=== PATIENT | female | born 1955 | race Caucasian/White ===

== ENCOUNTER 2017-11-16 01:27 | Emergency (ER) | payer MEDICAID, OTHER ==
[~2017-11-16] VITALS: Ht 162.6 cm; Wt 65.0 kg
[~2017-11-16 01:27] MED LIST: NAPR-996 PO
[2017-11-16 01:35] VITALS: BP 133/88
[2017-11-16] MEDS ORDERED: ketorolac trometh. 30mg/ml inj. IM ONE (01:50)
[2017-11-16] MEDS ORDERED: cephalexin 500mg capsule PO ONE (01:50)
[2017-11-16] MEDS ORDERED: IBUP-1985 PO (01:51)
[2017-11-16] MEDS ORDERED: CEPH500C5 PO (01:51)
== END 2017-11-16 02:08 | disposition home or self-care (01) ==
LOC: ER 01:27
DX: M79.671 Pain in right foot (principal); Z79.2 Long term (current) use of antibiotics; Z79.1 Long term (current) use of non-steroidal anti-inflammatories (NSAID)
CPT/HCPCS: 96372; 99283; J1885

== ENCOUNTER 2021-03-24 09:02 | Emergency (ER) | payer MEDICAID ==
[~2021-03-24] VITALS: Ht 172.7 cm; Wt 80.9 kg
[~2021-03-24 09:02] MED LIST changes: +CLIN150C8 PO
[2021-03-24] MEDS ORDERED: acetaminophen 325mg tablet PO ONE (09:20)
[2021-03-24] MEDS ORDERED: ketorolac trometh. 30mg/ml inj. IV ONE (09:20)
[2021-03-24] MEDS ORDERED: normal saline 1000ml 1,000 ML IV ONE (09:20)
[2021-03-24 09:51] LABS: BASOPHILS % (AUTO) 0.2 % (0-1); EOSINOPHILS # (AUTO) 0.1 X10'3 (0-0.9); HEMATOCRIT 38.3 % (35.0-45.0); HEMOGLOBIN 13.1 g/dl (12.0-16.0); LYMPHOCYTES # (AUTO) 0.6 X10'3 (1.1-4.8); LYMPHOCYTES % (AUTO) 4.2 % (21-51); MEAN CORPUSCULAR HEMOGLOBIN 29.3 PG (27.0-31.0); MEAN CORPUSCULAR HGB CONC 34.3 g/dL (33.0-36.5); MEAN CORPUSCULAR VOLUME 85.4 FL (78-98); MEAN PLATELET VOLUME 7.2 FL (7.4-10.4); MONOCYTES # (AUTO) 0.8 X10'3 (0-0.9); MONOCYTES % (AUTO) 6.3 % (2-12); NEUTROPHILS # (AUTO) 11.7 X10'3 (1.8-7.7); NEUTROPHILS % (AUTO) 88.3 % (42-75); PLATELET COUNT 206 X10'3 (140-440); RED BLOOD COUNT 4.48 X10'6 (4.20-5.60); RED CELL DISTRIBUTION WIDTH 13.7 % (11.5-14.5); WHITE BLOOD COUNT 13.3 X10'3 (4.5-11.0)
[2021-03-24] MEDS ORDERED: ketorolac trometh. 30mg/ml inj. IM ONE (10:05)
[2021-03-24 10:18] LABS: ALANINE AMINOTRANSFERASE 46 U/L (12-78); ALBUMIN 3.5 G/DL (3.4-5.0); ALBUMIN/GLOBULIN RATIO 1.2 (1.1-1.5); ALKALINE PHOSPHATASE 93 IU/L (46-116); ANION GAP 12 (8-16); ASPARTATE AMINO TRANSFERASE 49 U/L (10-37); BILIRUBIN,TOTAL 1.2 MG/DL (0.1-1.0); BLOOD UREA NITROGEN 15 MG/DL (7-18); BUN/CREATININE RATIO 15.8 (6.6-38.0); CALCIUM 8.5 MG/DL (8.5-10.1); CHLORIDE 98 MMOL/L (99-107); CREATININE 0.95 MG/DL (0.40-0.90); GLUCOSE 122 MG/DL (70-104); MAGNESIUM 1.2 MG/DL (1.5-2.4); POTASSIUM 3.4 MMOL/L (3.5-5.1); SODIUM 134 MMOL/L (135-145); TOTAL CARBON DIOXIDE 24.4 MMOL/L (24-32); TOTAL PROTEIN 6.4 G/DL (6.4-8.2); eGFR 59 ML/MIN
[2021-03-24 10:40] VITALS: BP 114/60
--- NOTE | 2021-03-24 12:03 | NUR ---
notified the patient daughter chaitanya that patient left the er without informing us ,pt walked out of er with her all belonging .informed that i asked her to try to urinate gabriele we can send the sample but pt said she will try in few mins ,came to check on pt no one was is room ,notified the provider josafat and charge nurse darin.
== END 2021-03-24 12:05 | disposition left against medical advice (07) ==
LOC: ER 09:02
DX: R50.9 Fever, unspecified (principal); Z20.822 Contact with and (suspected) exposure to COVID-19; Z79.2 Long term (current) use of antibiotics; Z79.899 Other long term (current) drug therapy
CPT/HCPCS: 36415; 71045; 80053; 83605; 83735; 84145; 85025; 87040; 87635; 93005; 96372; 99285; C9803; J1885; J7030

== ENCOUNTER 2024-01-16 08:22 | Outpatient (CLI) | payer MEDICARE, MEDICAID ==
[~2024-01-16 08:22] MED LIST changes: +CLIN-214 PO; -CLIN150C8 PO
== END 2024-01-16 23:59 | disposition home or self-care (01) ==
LOC: CARD DIAG 08:22
PROVIDERS: ATTEND Internal Medicine Critical Care Medicine
DX: I08.8 Other rheumatic multiple valve diseases (principal); M34.1 CR(E)ST syndrome; R06.02 Shortness of breath
CPT/HCPCS: 93306

== ENCOUNTER 2024-07-08 13:57 | Inpatient (IN) | payer MEDICARE, MEDICAID ==
[~2024-07-08] VITALS: Ht 162.6 cm; Wt 74.3 kg
[~2024-07-08 13:57] MED LIST changes: +NAPR-1168 PO; -NAPR-996 PO
[2024-07-08 15:00] LABS: BASOPHILS % (AUTO) 0.4 % (0-1); EOSINOPHILS # (AUTO) 0.1 X10'3 (0-0.9); EOSINOPHILS % (AUTO) 1.8 % (0-6); HEMATOCRIT 35.6 % (35.0-45.0); LYMPHOCYTES # (AUTO) 0.6 X10'3 (1.1-4.8); LYMPHOCYTES % (AUTO) 7.4 % (21-51); MEAN CORPUSCULAR HEMOGLOBIN 28.8 PG (27.0-31.0); MEAN CORPUSCULAR HGB CONC 33.7 g/dL (33.0-36.5); MEAN CORPUSCULAR VOLUME 85.3 FL (78-98); MEAN PLATELET VOLUME 7.6 FL (7.4-10.4); MONOCYTES # (AUTO) 0.8 X10'3 (0-0.9); MONOCYTES % (AUTO) 9.3 % (2-12); NEUTROPHILS # (AUTO) 6.7 X10'3 (1.8-7.7); NEUTROPHILS % (AUTO) 81.1 % (42-75); PLATELET COUNT 237 X10'3 (140-440); RED BLOOD COUNT 4.17 X10'6 (4.20-5.60); RED CELL DISTRIBUTION WIDTH 14.4 % (11.5-14.5); WHITE BLOOD COUNT 8.3 X10'3 (4.5-11.0)
[2024-07-08 15:11] LABS: ALBUMIN 3.1 G/DL (3.4-5.0); ANION GAP 11 (8-16); BLOOD UREA NITROGEN 11 MG/DL (7-18); BUN/CREATININE RATIO 10.6 (10.0-20.0); CHLORIDE 100 MMOL/L (99-107); CREATININE 1.04 MG/DL (0.40-0.90); GLUCOSE 122 MG/DL (70-104); POTASSIUM 3.6 MMOL/L (3.5-5.1); SODIUM 136 MMOL/L (135-145); TOTAL CARBON DIOXIDE 24.9 MMOL/L (24-32); eCRCL 46 ML/MIN; eGFR 53 ML/MIN
[2024-07-08 17:08] LABS: PRO BRAIN NATRIURETIC PEPTIDE 231 PG/ML (0-125)
[2024-07-08 17:33] LABS: ABG BASE EXCESS 0.2 mmol/L (-2.0-3.0); ABG OXYGEN SATURATION 94.1 % (94.0-98.0); ABG PCO2 (T) 31.8 mmHg (32.0-45.0); ABG PH (T) 7.478 (7.350-7.450); ALLEN'S TEST POSITIVE; FCOHb 0.9 % (0.5-1.5); FHHb 5.8 % (0.0-5.0); FMetHb 0.3 % (0.0-1.5); MODE RA; TOTAL HEMOGLOBIN 12.4 G/dl (12.0-16.0)
[2024-07-08] MEDS ORDERED: acetaminophen 325mg tablet PO PRN (17:35)
[2024-07-08] MEDS ORDERED: magnesium Cl slow-release 64mg tablet PO PRN (17:35)
[2024-07-08] MEDS ORDERED: potassium Cl 20 mEq SR tablet PO PRN (17:35)
[2024-07-08] MEDS ORDERED: ondansetron/PF 4mg/2ml inj IV PRN (17:35)
[2024-07-08] MEDS ORDERED: magnesium sulf-water 4G/100mL 100 ML IV PRN (17:35)
[2024-07-08] MEDS ORDERED: magnesium sulf-water 2g/50mL 50 ML IV PRN (17:35)
[2024-07-08] MEDS ORDERED: HYDROcodone/acetaminophen 5mg/325mg tablet PO PRN (17:35)
[2024-07-08] MEDS ORDERED: potassium Cl 40MEQ/1/2NS 520ml 520 ML IV PRN (17:35)
[2024-07-08] MEDS ORDERED: albuterol 2.5 MG/3 ML nebule NEB PRN (17:40)
[2024-07-08 18:13] LABS: HEMOGLOBIN A1C 5.3 % (4.5-6.2)
[2024-07-08 18:29] LABS: D-DIMER 1.33 MG/L FEU (0-0.50); PROTHROMBIN TIME 10.5 SECONDS (9.0-12.0)
[2024-07-08] MEDS: methylPREDNISolone sod succ/PF 40mg inj. IV SCH (18:30)
[2024-07-08] MEDS: furosemide 10 MG/1 ML 10ml inj IV ONE (18:32)
[2024-07-08 18:35] LABS: APTT 29 SECONDS (22-32)
[2024-07-08] MEDS: CefTRIAXone/D5W-Rocephin 1gm 50 ML IV SCH (18:36)
[2024-07-08] MEDS ORDERED: guaiFENesin ER 600mg tablet PO SCH (19:15)
[2024-07-08] MEDS: guaiFENesin ER 600mg tablet PO SCH (19:23)
[2024-07-08] MEDS: acetaminophen 325mg tablet PO ONE (19:45)
[2024-07-08 20:00] LABS: BILIRUBIN,URINE SMALL (Neg); CLARITY,URINE CLEAR (Clear); COLOR,URINE YELLOW (Yellow); GLUCOSE, URINE NEGATIVE (Neg); KETONES,URINE TRACE mg/dl (Neg); LEUKOCYTE ESTERASE ,URINE NEGATIVE (Neg); NITRITES, URINE NEGATIVE (Neg); OCCULT BLOOD,URINE NEGATIVE (Neg); PROTEIN,URINE 30 mg/dl (Neg)
[2024-07-08] MEDS: K and/or MAG REPLACEMENT MC SCH (20:00)
[2024-07-08 20:07] LABS: UA COLLECTION TYPE CLN CATCH MIDSTREAM
[2024-07-08 20:10] LABS: BACTERIA,URINE 1+ /HPF (Neg); MUCUS STRANDS FEW /LPF (Neg); RBC,URINE NONE SEEN /HPF (0-2); SQUAMOUS EPITHELIAL CELL,UR MODERATE /LPF (FEW); TRANSITIONAL EPI CELLS,URINE FEW /HPF; WBC,URINE 0-4 /HPF (0-4); YEAST FEW /HPF (NEGATIVE)
[2024-07-08] MEDS: ipratropium/albuterol 3ml nebule NEB SCH (20:39)
[2024-07-08 20:40] VITALS: PULSE 96; RESP 23; O2SAT 94
[2024-07-08 20:45] VITALS: PULSE 91; RESP 20
[2024-07-08] MEDS: potassium Cl 20 mEq SR tablet PO PRN (21:56)
[2024-07-08] MEDS: heparin, porcine 5000 units/ml vial SQ SCH (21:57)
[2024-07-08] MEDS ORDERED: PRED1TAB PO (22:20)
[2024-07-08] MEDS ORDERED: PRED5TAB PO (22:20)
[2024-07-08] MEDS ORDERED: ATOR20TA12 PO (22:21)
[2024-07-08 22:35] VITALS: RESP 15; O2SAT 95
[2024-07-08 22:56] VITALS: BP 111/62; PULSE 83; RESP 12; TEMP 96.3; O2SAT 96
[2024-07-08 23:36] VITALS: PULSE 89; RESP 22; O2SAT 96
[2024-07-08 23:43] VITALS: PULSE 85; RESP 22
[2024-07-09] VITALS (19 sets, daily range): BP systolic 106–112; BP diastolic 50–70; PULSE 71–97; RESP 15–22; TEMP 97.6–98.5; O2SAT 88–100
[2024-07-09 07:03] LABS: BASOPHILS % (AUTO) 0.2 % (0-1); EOSINOPHILS % (AUTO) 0 % (0-6); LYMPHOCYTES # (AUTO) 0.3 X10'3 (1.1-4.8); MEAN CORPUSCULAR HEMOGLOBIN 28.6 PG (27.0-31.0); MEAN CORPUSCULAR HGB CONC 33.3 g/dL (33.0-36.5); MEAN CORPUSCULAR VOLUME 85.8 FL (78-98); MEAN PLATELET VOLUME 7.5 FL (7.4-10.4); MONOCYTES # (AUTO) 0.2 X10'3 (0-0.9); NEUTROPHILS # (AUTO) 4.8 X10'3 (1.8-7.7); NEUTROPHILS % (AUTO) 90.8 % (42-75); PLATELET COUNT 230 X10'3 (140-440); RED CELL DISTRIBUTION WIDTH 14.5 % (11.5-14.5); WHITE BLOOD COUNT 5.3 X10'3 (4.5-11.0)
[2024-07-09 07:57] LABS: ALANINE AMINOTRANSFERASE 41 U/L (12-78); ALBUMIN 2.9 G/DL (3.4-5.0); ALBUMIN/GLOBULIN RATIO 0.7 (1.1-1.5); ALKALINE PHOSPHATASE 204 IU/L (46-116); ANION GAP 14 (8-16); ASPARTATE AMINO TRANSFERASE 24 U/L (10-37); BILIRUBIN,TOTAL 0.4 MG/DL (0.1-1.0); BLOOD UREA NITROGEN 17 MG/DL (7-18); BUN/CREATININE RATIO 15.6 (10.0-20.0); CALCIUM 8.8 MG/DL (8.5-10.1); CHLORIDE 100 MMOL/L (99-107); CHOLESTEROL 175 MG/DL (0-200); CREATININE 1.09 MG/DL (0.40-0.90); GLUCOSE 249 MG/DL (70-104); HDL CHOLESTEROL 44 MG/DL (35-60); LDL CHOLESTEROL 115 MG/DL (50-100); MAGNESIUM 2.1 MG/DL (1.5-2.4); PHOSPHORUS 4.6 MG/DL (2.3-4.5); POTASSIUM 3.8 MMOL/L (3.5-5.1); SODIUM 138 MMOL/L (135-145); TOTAL CARBON DIOXIDE 23.6 MMOL/L (24-32); TOTAL PROTEIN 7.3 G/DL (6.4-8.2); TRIGLYCERIDES 85 MG/DL (20-135); eCRCL 44 ML/MIN; eGFR 50 ML/MIN
[2024-07-09] MEDS: pantoprazole 40mg Tablet.DR PO SCH (08:03)
[2024-07-09] MEDS: lisinopril 10 MG tablet PO SCH (08:04)
[2024-07-09] MEDS ORDERED: LISI10TA27 PO (18:03)
[2024-07-09] MEDS ORDERED: TRAZ-251 PO (18:03)
[2024-07-09] MEDS ORDERED: HYDR200T73 PO (18:03)
[2024-07-09] MEDS ORDERED: HYDR-3964 PO (18:03)
[2024-07-09] MEDS: mag hydrox/Alum hydrox/simeth 30ml oral suspension PO PRN (20:10)
[2024-07-10] VITALS (12 sets, daily range): BP systolic 101–113; BP diastolic 42–67; PULSE 61–94; RESP 15–22; TEMP 97.8–98.5; O2SAT 95–100
[2024-07-10] MEDS: acetaminophen 325mg tablet PO PRN (01:54)
[2024-07-10 06:52] LABS: BASOPHILS % (AUTO) 0.1 % (0-1); EOSINOPHILS % (AUTO) 0 % (0-6); HEMATOCRIT 37.9 % (35.0-45.0); HEMOGLOBIN 12.6 g/dl (12.0-16.0); LYMPHOCYTES # (AUTO) 0.5 X10'3 (1.1-4.8); LYMPHOCYTES % (AUTO) 3.4 % (21-51); MEAN CORPUSCULAR HEMOGLOBIN 28.7 PG (27.0-31.0); MEAN CORPUSCULAR HGB CONC 33.3 g/dL (33.0-36.5); MEAN CORPUSCULAR VOLUME 86.2 FL (78-98); MEAN PLATELET VOLUME 7.7 FL (7.4-10.4); MONOCYTES # (AUTO) 0.7 X10'3 (0-0.9); NEUTROPHILS # (AUTO) 12.4 X10'3 (1.8-7.7); NEUTROPHILS % (AUTO) 91.5 % (42-75); PLATELET COUNT 297 X10'3 (140-440); RED CELL DISTRIBUTION WIDTH 14.1 % (11.5-14.5); WHITE BLOOD COUNT 13.5 X10'3 (4.5-11.0)
[2024-07-10 07:02] LABS: ALANINE AMINOTRANSFERASE 38 U/L (12-78); ALBUMIN 3.2 G/DL (3.4-5.0); ALBUMIN/GLOBULIN RATIO 0.7 (1.1-1.5); ALKALINE PHOSPHATASE 199 IU/L (46-116); ANION GAP 12 (8-16); ASPARTATE AMINO TRANSFERASE 15 U/L (10-37); BILIRUBIN,TOTAL 0.3 MG/DL (0.1-1.0); BLOOD UREA NITROGEN 26 MG/DL (7-18); BUN/CREATININE RATIO 22.8 (10.0-20.0); CALCIUM 8.9 MG/DL (8.5-10.1); CHLORIDE 99 MMOL/L (99-107); CREATININE 1.14 MG/DL (0.40-0.90); GLUCOSE 192 MG/DL (70-104); MAGNESIUM 2.3 MG/DL (1.5-2.4); PHOSPHORUS 4.5 MG/DL (2.3-4.5); POTASSIUM 3.8 MMOL/L (3.5-5.1); SODIUM 137 MMOL/L (135-145); TOTAL CARBON DIOXIDE 26.4 MMOL/L (24-32); TOTAL PROTEIN 7.9 G/DL (6.4-8.2); eCRCL 42 ML/MIN; eGFR 48 ML/MIN
[2024-07-10] MEDS ORDERED: PANT40TA54 PO (10:50)
[2024-07-10] MEDS ORDERED: GUAI600T45 PO (10:50)
[2024-07-10] MEDS ORDERED: IPRA3AMP9 NEB (10:50)
[2024-07-10] MEDS ORDERED: ALBU2.5V7 NEB (10:50)
[2024-07-10] MEDS ORDERED: FURO-150 PO (10:51)
[2024-07-10] MEDS ORDERED: LEVO750T68 PO (10:52)
[2024-07-10] MEDS ORDERED: PRED10TA23 PO (10:58)
== END 2024-07-10 12:30 | disposition home or self-care (01) | DRG 193 ==
LOC: ER 13:57 → ED HOLD 17:36 → PCU 3S 22:36
PROVIDERS: ADMIT Internal Medicine; ATTEND Internal Medicine
PROC: CB121ZZ Planar Nuclear Medicine Imaging of Lungs and Bronchi using Technetium 99m (Tc-99m) (ICD-10-PCS; principal; 2024-07-09)
DX: J15.9 Unspecified bacterial pneumonia (principal); I50.31 Acute diastolic (congestive) heart failure; J84.9 Interstitial pulmonary disease, unspecified; I13.0 Hypertensive heart and chronic kidney disease with heart failure and stage 1 through stage 4 chronic kidney disease, or unspecified chronic kidney disease; Z20.822 Contact with and (suspected) exposure to COVID-19; Z66 Do not resuscitate; I27.81 Cor pulmonale (chronic); M34.1 CR(E)ST syndrome; K21.9 Gastro-esophageal reflux disease without esophagitis; N18.9 Chronic kidney disease, unspecified; G47.33 Obstructive sleep apnea (adult) (pediatric); M81.0 Age-related osteoporosis without current pathological fracture; I27.20 Pulmonary hypertension, unspecified
CPT/HCPCS: 36415; 36600; 71045; 71250; 78582; 80048; 80053; 80061; 81001; 82803; 83036; 83605; 83735; 83880; 84100; 84145; 84484; 85018; 85025; 85379; 85610; 85730; 87040; 87081; 87502; 87503; 87811; 93005; 93306; 93970; 94640; 94760; 96365; 96372; 96375; 99291; A4615; A4620; A9539; A9540; G0378; J0696; J1644; J1940; J2919; J7040

== ENCOUNTER 2024-12-21 02:38 | Emergency (ER) | payer MEDICARE, MEDICAID ==
[~2024-12-21] VITALS: Ht 162.6 cm; Wt 70.4 kg
[~2024-12-21 02:38] MED LIST changes: +ALBU2.5V7 NEB; +ATOR20TA12 PO; -CLIN-214 PO; +FURO-150 PO; +GUAI600T45 PO; +HYDR-3964 PO; +HYDR200T73 PO; +IPRA3AMP9 NEB; +LISI10TA27 PO; -NAPR-1168 PO; +PANT40TA54 PO; +TRAZ-251 PO
[2024-12-21 02:40] VITALS: BP 128/82; PULSE 91; TEMP 97.6; O2SAT 98
[2024-12-21] MEDS ORDERED: normal saline 1000ML IV soln IVB ONE (02:50)
[2024-12-21] MEDS ORDERED: ondansetron/PF 4mg/2ml inj IV ONE (02:50)
[2024-12-21] MEDS ORDERED: morphine 4 MG/ML inj SYRINge IV ONE (02:50)
--- NOTE | 2024-12-21 02:52 | Physician Documentation ---
History of Present Illness Chief Complaint: Abdominal Pain w/vomiting Stated Complaint: VOMITING,SHORT OF BREATH Time Seen by MD: 02:46 Primary Medical Doctor: shawn schroeder on [facility], [place] HPI 69-year-old female with a prior history of colon resection, colostomy, status post reversal of colostomy, still has her gallbladder, presents for evaluation of sudden onset unprovoked severe epigastric/right upper quadrant abdominal pain that started at 1:30 a.m.. No palliating or aggravating factors. Accompanied b y nausea and vomiting. Pain radiates to the back. Not migratory. Sharp. Not ripping or tearing. Never experienced this in the past. States that the pain took her breath away. Reports chills. Denies any chest pain. Denies any fever. Denies use of alcohol. Denies use of illicit substances. Medication Reconciliation Allergies: Coded Allergies: No Known Allergies (Unverified , 12/21/24) Scheduled Atorvastatin Calcium (Lipitor), 1 TAB PO DAILY, (Reported) Furosemide (Lasix), 20 MG PO DAILY Guaifenesin (Mucinex), 600 MG PO Q12H Hydrocodone Bit/Acetaminophen (Hydrocodon-Acetaminophen 5-325), 1 TAB PO Q6H, (Reported) Hydroxychloroquine Sulfate* (Plaquenil*), 400 MG PO DAILY, (Reported) Ipratropium/Albuterol Sulfate (IPRAT-ALBUT 0.5-3(2.5) MG/3 ML nebule), 3 ML NEB Q4H Lisinopril (Lisinopril), 1 TAB PO DAILY, (Reported) Pantoprazole Sodium (Pantoprazole Sodium), 40 MG PO BKF Trazodone HCl (Trazodone HCl), 1 TAB PO HS, (Reported) Scheduled PRN Albuterol Sulfate (Albuterol Sulfate), 2.5 MG NEB Q4H PRN for SOB or wheezing Past Medical History Past Medical History: Diverticulosis Past Surgical History: noncontributory Alcohol Use: Rarely Drug Use: none Lives with: Family Lives In: Home Occupation: employed Review of Systems ROS 10 point review of systems was performed and unless noted above in HPI is negative for acute process/complaint. Physical Exam Vital Signs: Temperature: 97.6, Source: Temporal, Heart Rate: 91, Respiratory Rate: 22, BP: 128/82, Pulse Oximetry: 98, Weight: 70.400 Physical Exam GENERAL: Awake, alert, oriented, GCS 15, no apparent distress, non-toxic appearing, answers questions, follows commands appropriately. Examined immediately upon arrival in triage HEENT: Atraumatic, normocephalic, pupils equal, extraocular muscles intact, sclerae anicteric, mucus membranes moist, oropharynx is clear, no stridor. NECK: supple, full active range of motion, trachea midline, no thyromegaly, no lymphadenopathy, no JVD. CARDIOVASCULAR: regular rate/rhythm, no murmurs/gallops/rubs, Pulses are 2+ in all extremities and symmetric. Capillary refill less than 2 seconds. PULMONARY: Nonlabored, good air movement ,no respiratory distress, speaking in full sentences, clear to auscultation bilaterally, no wheezing, no ronchi, no rales, no accessory muscle use. GASTROINTESTINAL: Soft, epigastric and right upper quadrant abdominal tenderness to palpation reproducing chief complaint, non-distended, normal active bowel sounds, no organomegaly, no pulsatile masses, no CVA tenderness. NEUROLOGIC: Lucid with normal mental status. Normal facial symmetry. Moves all extremities symmetrically and with purpose. No truncal ataxia. Speech is fluid without evidence of dysarthria or aphasia, no focal deficits appreciated. MUSCULOSKELETAL: There is full range of motion of all extremities. There is no joint pain or joint swelling or joint erythema. There is no muscle pain or tenderness or swelling. EXTREMITIES: warm, well-perfused, no cyanosis, no clubbing, no edema, no acute deformities. Skin: warm, dry, no rashes or lesions, no jaundice, no petechiae orpurpura. No ecchymosis. PSYCHIATRIC: Normal affect, normal insight, normal concentration. Focused exam: [No guarding or rebound] Progress Results/Orders Results/Orders Vital Signs 12/21/24 02:40 Temp 97.6 Pulse 91 Resp 22 B/P (MAP) 128/82 Pulse Ox 98 EKG/XRAY/CT/US/VASC/MRI EKG : Additional Comment EKG was obtained and interpreted by myself showing sinus rhythm of 85, normal UT interval, narrow QRS, no QT prolongation, normal axis, no STEMI. Medical Decision Making Findings Facility Status: ED Holds, [facility] process The plan was discussed with the patient, who demonstrates clear understanding of the plan and is in agreement with the plan unless otherwise noted in the chart. All questions have been answered, all concerns were addressed unless otherwise documented. I was available throughout their ED stay for frequent reassessment and questions. Differential Diagnoses (considered and possible or likely): [Differential diagnosis considered includes acute appendicitis, acute cholecystitis, pancreatitis, gastritis, PUD, diverticulitis, mesenteric ischemia, abdominal aortic aneurysm, bowel obstruction, enteritis, colitis, fecal impaction, volvulus, IBS, inflammatory bowel disease, specific food intolerance, p eritonitis, perforated viscous, malignancy, UTI, abscess, and abdominal pain NOS. Pelvic source of pain was also considered including endometritis, dysmenorrhea, ovarian cyst, ovarian torsion, PID, TOA, cervicitis, vaginitis, or uterine fibroid. History, physical exam, and workup exclude many of the more serious causes listed above. ] ??Differential Diagnoses (considered and unlikely, not requiring evaluation currently): [Aortic/great vessels dissection was considered but it is unlikely based on absence of ripping, tearing, migratory chest pain, absence of syncope or focal neurologic deficits, physical examination indicating equal and symmetric pulses.] MDM Data Please see HPI for the following: Independent Historians and external Records Review. Historian: [Patient] Independent Historians: ?[Record review] Medication Management: [Reviewed medication list] Social History and determinants: [Reviewed] Please see the body of the note for the following: Any independent interpretations of ECG, imaging studies. All vitals signs/haemodynamics, ordered tests were independently reviewed and interpreted by myself. Nursing triage complaint and vitals reviewed, additional nursing notes were reviewed as available and I agree unless otherwise noted or documented in contradiction in the chart Vital Signs: Independently reviewed Labs: Independently interpreted Imaging: Independently interpreted Old Medical Records: Independently reviewed, see HPI for relevant summary and information Pulse Oximetry: [98%] interpreted as [normal on room air] by me [Loss Prevention Auditor: [Regular Rate, Regular rhythm, no ectopy, NSR] reviewed and interpreted by me] Additionally notably showing: [Hemodynamics reviewed. The patient is not febrile, not tachycardic, no evidence of hypotension respiratory distress. CBC is normal, no leukocytosis, no anemia, normal platelets. No significant neutrophilic predominance. Chemistry shows stable CKD with a creatinine of 1.25. Slightly elevated bilirubin, unknown significance. BNP is normal. Troponin is normal. Lipase and amylase are also normal. Ethanol is negative. CT] Tests considered but not ordered include: [Date: Dec 21, 2024 Time: 04:03 Right upper quadrant ultrasound has been considered, however her liver labs are normal, there is no white count. My suspicion for acute cholecystitis as per your low at this time.] Social Determinants of Health Impact: Patient was evaluated in [facility] [place] to healthcare due to below par ratio of patient to medical providers. [] Comorbid Conditions Impacting Present Evaluation and Care/Treatment: [Multiple, see list] Management Discussions with other Healthcare Providers: [Not applicable, patient chose to leave against medical advice] Treatment and Disposition Medication Management (Given or considered): [Pain management]. See EMR for details Consideration for Hospitalization/Escalation/Deescalation of Care: Admission for observation has been considered, [however the patient is able to tolerate p.o., their symptoms are controlled, they are able to rely on oral medications, and their chief complaint/diagnosis can be managed on outpatient basis.] ?ED Course:?[Date: Dec 21, 2024 Time: 04:02 the patient feels that at one of the time she received contrast, she may have developed hives. She does not recall her it was oral right knee. She does not recall the procedure. She does not recall when it was. At this point I feel she can benefit from premedication in her over to avoid potential allergic reaction with the contrast administration, we will give Solu-Medrol and Benadryl. Date: Dec 21, 2024 Time: 05:26 I was notified with the primary nurse that patient desires to leave against medical advice. Risks and benefits including up to permanent disability and has been discussed. Patient expresses her understanding. ] ?Shared decision making:?[] Code status:?FULL Please see the full Electronic Medical Record for full details of nursing documentation, medications list, other records of complete past medical history and conditions, vital signs, laboratory studies, and any radiologic study interpretations by radiologists. Portions of this note were completed using [employer] dictation software and as a result there may exist minor errors in spelling. I have reviewed elements of past family and social history and agree as included in note. Departure Disposition: 07 LEFT AGAINST MEDICAL ADVICE Impression: Primary Impression: Upper abdominal pain Additional Impression: Nausea and vomiting Condition: Improved Referrals: NO PRIMARY CARE PROVIDER (PCP) Education Educated: Patient, Family Educated regarding: diagnosis, need for follow up Signature Scribe Signature: No scribe Attestation: Date: Dec 21, 2024 Time: 02:52 This note accurately reflects clinical decisions, work performed by myself, Rajan Garcia, RAJAN HOPKINS DO Dec 21, 2024 02:52
[2024-12-21 03:21] LABS: MEAN PLATELET VOLUME 8.1 FL (7.4-10.4); RED CELL DISTRIBUTION WIDTH 15.3 % (11.5-14.5)
--- NOTE | 2024-12-21 03:26 | ELECTROCARDIOGRAPH REPORT ---
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
[2024-12-21 03:37] LABS: CREATININE 1.25 MG/DL (0.40-0.90); TOTAL CARBON DIOXIDE 26.8 MMOL/L (24-32); eCRCL 38 ML/MIN; eGFR 43 ML/MIN
[2024-12-21] MEDS ORDERED: iohexol 300mg/ml 100ml inj. ONE (03:37)
[2024-12-21 03:44] LABS: ETHANOL < 10 MG/DL (<10); PRO BRAIN NATRIURETIC PEPTIDE 63 PG/ML (0-125)
[2024-12-21 04:07] VITALS: RESP 14
== END 2024-12-21 06:13 | disposition left against medical advice (07) ==
LOC: ER 02:38
DX: R10.11 Right upper quadrant pain (principal); R06.02 Shortness of breath; Z79.899 Other long term (current) drug therapy
CPT/HCPCS: 36415; 80053; 82150; 83690; 83735; 83880; 84484; 85025; 93005; 99284; G0480; Q9967; 80320